=== PATIENT | male | born 1960 | race Caucasian/White ===

== ENCOUNTER 2022-11-06 08:51 | Outpatient (RCR) | payer BC, SELFPAY ==
--- NOTE | 2022-11-01 09:00 | CRLHL7_ITS ---
For Patients: As a result of the Century Cures Act, medical imaging exams and procedure reports are released immediately into your electronic medical record. You may view this report before your referring provider. If you have questions, please contact your health care provider. [facility] ??? [facility] MYOCARDIAL PERFUSION SCAN CLINICAL HISTORY: 62-year-old male. Dyspnea and shortness of breath on exertion. Hypercholesteremia. Chest tightness with exertion. Father had CABG surgery at age 74. 5 feet 9 inches, 280 pounds. TECHNIQUE: (Resting SPECT and Stress Gated SPECT with wall motion and ejection fraction) Stress: Pharmacologic - Lexiscan (0.4 mg) (IV) Dose (Stress/Rest): 41.6 mCi / 39.4 mCi Tc-99m Sestamibi Comparison: None FINDINGS: There is good uptake of activity by the left ventricle. No left ventricular enlargement is noted. There is soft tissue attenuation. There is also a mid septal hotspot. This causes a normalization artifact in the other myocardial segments. Accounting for these, there is no convincing evidence for significant myocardial ischemia or infarction. The gated images demonstrate a normal left ventricular ejection fraction of 53 percent. No regional wall motion abnormalities are identified. IMPRESSION: 1) There is no evidence of significant myocardial ischemia or infarction. 2) Normal left ventricular ejection fraction of 53 percent. SIDRA MOCTEZUMA M.D. Transcribed: 12:18 p.m. [email or web address] jj/Dictated by: Sidra Moctezuma MD @ 11/06/2022 10:53:00 AM (Electronically Signed)
[2022-11-06] MEDS: REGADENOSON 0.4 MG/5 ML SYRINGE IVP (09:30)
[2022-11-06] MEDS: SODIUM CHLORIDE 0.9 % (FLUSH) 10 ML SYRINGE IVF (09:30)
[2022-11-06 10:07] VITALS: BP 159/99; PULSE 77
--- NOTE | 2022-11-06 15:59 | W.PM.STED ---
Stress Test Note Date Date Seen: 11/06/22 Date of test: 11/06/22 Providers Primary care provider: Jay Dove Stress test physician: Tabatha Boateng Stress Test Note Stress test ordered: Lexiscnoah Indication for test: Dyspnea Stress test medicine: Lexiscan Results discussion: Resting EKG: Sinus rhythm, 80 beats per minute. Resting blood pressure: 145/94 Stress test: Patient had Lexiscan done nonwalking. [place] chest heaviness or pressure with the regadenoson infusion which abated. Patient had a maximal blood pressure 171/112. No arrhythmia or concerning EKG changes noted. Await nuclear medicine images to couple this for a full formal diagnostic. Impression: Negatve EKG portion this Lexiscan. Follow up suggested: Patient will await a call back from his ordering provider once the nuclear medicine images have been read. He is discharged from here in stable condition.
== END 2022-11-15 23:59 | disposition home or self-care (01) ==
LOC: STRESS 08:51
PROVIDERS: PCP Family Medicine; Visit Provider Family Medicine
DX: R06.09 Other forms of dyspnea (principal); R60.0 Localized edema
CPT/HCPCS: 78452; 93016; 93017; A9500; J2785

== ENCOUNTER 2022-11-12 09:30 | Outpatient (CLI) | payer BC, SELFPAY | END 2022-11-12 09:31 | disposition home or self-care (01) | LOC: NFLDREF 11-13 09:28 | PROVIDERS: PCP Family Medicine; Referring Provider Family Medicine; Visit Provider Family Medicine | DX: I10 Essential (primary) hypertension (principal); R79.89 Other specified abnormal findings of blood chemistry | CPT/HCPCS: 80048; 80076 ==

== ENCOUNTER 2022-11-16 07:58 | Outpatient (CLI) | payer BC, SELFPAY ==
--- NOTE | 2022-11-16 08:15 | CRLHL7_ITS ---
For Patients: As a result of the Century Cures Act, medical imaging exams and procedure reports are released immediately into your electronic medical record. You may view this report before your referring provider. If you have questions, please contact your health care provider. INDICATION: Liver TECHNIQUE: Ultrasound abdomen limited. Sonographic images of the right upper quadrant were obtained using grande-scale and color Doppler images. COMPARISON: None FINDINGS: Liver: Normal in size with fatty infiltration. No masses. No intrahepatic biliary dilatation. Gallbladder: No stones or sludge. Normal wall thickness. No pericholecystic fluid. Common bile duct: 4 mm. Pancreas: Normal. Right kidney: 12.8 cm. Normal echotexture and cortex. 1.2 cm nonobstructing right renal calculi. No hydronephrosis. Vasculature: Proximal abdominal aorta and IVC are normal. IMPRESSION: Infiltration of the liver. 1.2 centimeter nonobstructing right renal calculi. No hydronephrosis. Dictated by Jarett Jansen MD @ 11/16/2022 4:17:50 PM (Electronically Signed)
== END 2022-11-16 07:59 | disposition home or self-care (01) ==
LOC: US 07:59
PROVIDERS: PCP Family Medicine; Visit Provider Family Medicine
DX: R79.89 Other specified abnormal findings of blood chemistry (principal); N20.0 Calculus of kidney
CPT/HCPCS: 76705

== ENCOUNTER 2022-12-28 13:15 | Outpatient (CLI) | payer BC, SELFPAY | END 2022-12-28 13:16 | disposition home or self-care (01) | PROVIDERS: PCP Family Medicine; Visit Provider Family Medicine | DX: Z00.00 Encounter for general adult medical examination without abnormal findings (principal); E78.00 Pure hypercholesterolemia, unspecified; R79.89 Other specified abnormal findings of blood chemistry; R73.03 Prediabetes; E66.9 Obesity, unspecified | CPT/HCPCS: 80053; 80061 ==

== ENCOUNTER 2023-07-20 13:33 | Emergency (ER) | payer BC, SELFPAY ==
[2023-07-20 13:39] VITALS: BP 144/107; PULSE 84; RESP 16; O2SAT 95; BMI 40.5
--- NOTE | 2023-07-20 14:03 | ED_ITS ---
HPI - General Adult General Chief complaint: Laceration/Wound Stated complaint: R pinky finger injury Time Seen by Provider: 07/20/23 13:43 History of Present Illness HPI narrative: Cutting trees, using a bar to pry tree, fell down and finger got stuck between bar and tree. Occurred approx 1 hour ago (1230) 62-year-old man presenting to the emergency department after sustaining an injury to his right pinky finger. Was cutting down trees in using a pry bar. There was a slip and finger was crushed. This was through a glove. Is having pain but he appears to be tolerating this well. There is underlying history of diabetes. No other significant injuries were sustained Related Data Previous Rx's Medication Instructions Recorded semaglutide 0.25 mg or 0.5 mg (2 0.5 mg (0.736 mL) subcut QWEEK #6 12/28/22 mg/3 mL) subcutaneous pen injector mL (Ozempic) semaglutide 0.25 mg or 0.5 mg (2 0.25 mg (0.368 mL) subcut QWEEK #3 03/14/23 mg/3 mL) subcutaneous pen injector mL (Ozempic) semaglutide 1 mg/dose (4 mg/3 mL) 1 mg (0.75 mL) subcut QWEEK #3 mL 07/10/23 subcutaneous pen injector (Ozempic) Allergies Allergy/AdvReac Type Severity Reaction Status Date / Time ragweed pollen Allergy Mild Congested Verified 12/28/22 13:00 Review of Systems Status of ROS: Reports: 6 or more systems reviewed and unremarkable except as noted in History and below PFSH PFS Surgical History History of tonsillectomy and adenoidectomy (07/31/10) ?Z90.89 - Acquired absence of other organs (ICD-10) Social History Smoking Status: Never smoker Second hand tobacco smoke exposure: No How often do you have a drink containing alcohol: never How often do you have six or more drinks on one occasion: Never AUDIT-C Alcohol total score: 0 Non-prescribed substance use: denies use Little interest or pleasure in doing things: not at all Feeling down, depressed, or hopeless: not at all Exam Narrative: Exam Narrative: Pleasant. NAD. Favoring of course his right hand. Blood pressure is up a little bit. Removing wrap, examination of the right hand does show lightly bleeding extensive injury to the right 5th finger. There is traumatized tissue running nearly the entire length of the volar surface. Split/burst open essentially on the volar surface. At least 5 cm of laceration. There is partial amputation of the distal phalanx with medial deviation approximately in the middle of this phalanx. Cuts through the base of the nail. Const: Vital Signs, click to edit/add: Vital Signs - 24 hr 07/20/23 13:39 Pulse Rate [Left P ulse Oximeter] 84 Respiratory Rate 16 Blood Pressure [Le ft Upper Arm] 144/107 H Pulse Oximetry 95 Oxygen Delivery Me thod Room Air Documenting provider has reviewed patient's vital signs: yes Course Vital Signs Vital signs: Initial Vital Signs Pulse Rate 84 07/20/23 13:39 Respiratory Rate 16 07/20/23 13:39 Blood Pressure 144/107 H 07/20/23 13:39 Blood Pressure Mean 119 H 07/20/23 13:39 Blood Pressure Position Sitting 07/20/23 13:39 Pulse Oximetry 95 07/20/23 13:39 Oxygen Delivery Method Room Air 07/20/23 13:39 Vital Signs Pulse Rate 84 07/20/23 13:39 Respiratory Rate 16 07/20/23 13:39 Blood Pressure 144/107 H 07/20/23 13:39 Pulse Oximetry 95 07/20/23 13:39 Oxygen Delivery Method Room Air 07/20/23 13:39 Pulse Rate 84 07/20/23 13:39 Respiratory Rate 16 07/20/23 13:39 Blood Pressure 144/107 H 07/20/23 13:39 Pulse Oximetry 95 07/20/23 13:39 Oxygen Delivery Method Room Air 07/20/23 13:39 Medications Administered Medications: Discontinued Medications Generic Name Dose Route Start Last Admin Trade Name Freq PRN Reason Stop Dose Admin Bupivacaine HCl 5 ml 07/20/23 14:12 07/20/23 15:11 Bupivacaine 0.25% 30 Ml INJECTION 07/20/23 14:13 5 ml ONCE ONE Administration Medical Decision Making MDM Narrative Medical decision making narrative: I would presume fracture of the distal finger here. Open fracture essentially. Placed bupivacaine for anesthesia. Sending for x-ray. Confirms fracture complete of the distal 3rd of the 5th distal phalanx on my read. Spot of debris? noted Return to spend some time irrigating this finger. Will be repairing this fracture laceration and anticipate prophylactic antibiotics. Closed with combination of 4 and 5 0 Ethilon and interrupted and simple sutures. Did support the distal finger with suturing through the nail as well. Much improved alignment. Antibiotic ointment, gauze wrap and finger Stax splint applied. The essentially burst laceration remains partially open due to tension this wound. Will have to heal somewhat with secondary intention. See further discussion patient discharge plan Medical Records Medical records reviewed: Yes I reviewed the patient's medical records Discharge Plan Discharge Clinical Impression: Fracture, finger, distal phalanx, open, Crush injury to finger, Finger laceration Patient Disposition: Home, Self-Care Additional Instructions: Elevate for comfort. Yes, arm sling might be helpful here. For the short-term and with a little food maybe, can take up to 800 mg of ibuprofen or alternatively up to 500 mg naproxen 2 times daily. Either can be combined with up to 1000 mg of acetaminophen per dose. Watch for spreading redness after 2 days accompanied by heat, swelling, marked increase in pain, purulent drainage. I would follow-up in about 3 weeks for re-evaluation. sutures out in 10 days. antibiotic ointment for 6 days and then to a dry dressing. ok to get wet but try not to soak while sutures are in. Transition to appropriately sized finger stack splint once stepdown size can be placed. Can transition to Band-Aid alone and with antibiotic ointment as soon as tomorrow I would anticipate wearing the splint for maybe as long as 6 weeks. Remember to most of the time, nixon tape the little finger to the 4th finger, especially while wearing the splint. Prescribing oral antibiotic, cephalexin, from [facility] as prophylaxis for a few days. Take the cephalexin for 6 days. Prescriptions: No Action Ozempic 0.25 mg or 0.5 mg (2 mg/3 mL) pen injector 0.5 mg subcut QWEEK Qty: 6 1RF Ozempic 0.25 mg or 0.5 mg (2 mg/3 mL) pen injector 0.25 mg subcut QWEEK Qty: 3 0RF Rx Instructions: for 4 weeks; then increase to 0.5 mg every week Ozempic 1 mg/dose (4 mg/3 mL) pen injector 1 mg subcut QWEEK Qty: 3 0RF Follow Up/Referrals: Jay Dove MD [Primary Care Provider] - Stand Alone Forms: [employer] Info Instructions
--- NOTE | 2023-07-20 14:12 | XR_ITS ---
Final Report Patient: PK GREGORY Facility:?[facility] Patient ID:?[id number] Site Patient ID:?[id number] Site :?[id number] Study:?XRay Extremity Right 5TH FINGER 3 VIEWS-07/20/2023 2:28:01 PM Ordering Physician:MELANI Final Report: Indication: Distal crush injury Comparison: None available. Technique: AP, lateral, and oblique views right 5th digit were obtained. Findings: There is traumatic amputation of the distal 5th phalanx with open soft tissue wound. Degenerative changes of the interphalangeal joints are appreciated. Marked soft tissue swelling and laceration of the distal 5th digit. Impression: Traumatic amputation of the distal 5th digit tuft with open wound and soft tissue debris. Dictated by Jeison Castro MD @ 07/20/2023 2:43:18 PM (Electronic Signature)
[2023-07-20] MEDS: BUPIVACAINE 0.25% 30 ML 5 ML INJECTION (15:11)
== END 2023-07-20 16:00 | disposition home or self-care (01) ==
PROVIDERS: Emergency Provider Family Medicine; PCP Family Medicine
DX: S62.666B Nondisplaced fracture of distal phalanx of right little finger, initial encounter for open fracture (principal); S61.316A Laceration without foreign body of right little finger with damage to nail, initial encounter; W23.0XXA Caught, crushed, jammed, or pinched between moving objects, initial encounter
CPT/HCPCS: 12001; 73140; 99284; J0665

== ENCOUNTER 2023-08-01 13:51 | Outpatient (CLI) | payer BC, SELFPAY | END 2023-08-01 13:52 | disposition home or self-care (01) | PROVIDERS: PCP Family Medicine; Visit Provider Family Medicine | DX: E11.9 Type 2 diabetes mellitus without complications (principal); E78.00 Pure hypercholesterolemia, unspecified; R79.89 Other specified abnormal findings of blood chemistry | CPT/HCPCS: 80053; 80061; 82043; 82570 ==

== ENCOUNTER 2023-12-04 08:58 | Outpatient (CLI) | payer BC, SELFPAY | END 2023-12-04 08:59 | disposition home or self-care (01) | LOC: NFLDREF 12-06 05:06 | PROVIDERS: PCP Family Medicine; Referring Provider Family Medicine; Visit Provider Family Medicine | DX: R79.89 Other specified abnormal findings of blood chemistry (principal); E78.00 Pure hypercholesterolemia, unspecified | CPT/HCPCS: 80061; 80076 ==

== ENCOUNTER 2024-01-06 08:41 | Emergency (ER) | payer BC, SELFPAY ==
[2024-01-06 08:44] VITALS: BP 167/93; PULSE 69; RESP 18; TEMP 35.7; O2SAT 95; BMI 39.7
--- NOTE | 2024-01-06 09:16 | CRLHL7_ITS ---
For Patients: As a result of the Century Cures Act, medical imaging exams and procedure reports are released immediately into your electronic medical record. You may view this report before your referring provider. If you have questions, please contact your health care provider. INDICATION: Left lower quadrant abdominal pain and left lower back pain. COMPARISON: None. TECHNIQUE: CT of the abdomen and pelvis with intravenous contrast. Multiplanar axial, coronal, and sagittal reformats were reconstructed. Contrast: 132 mL Isovue 370. FINDINGS: Lung bases: Mild basilar atelectasis. Liver: [id number] diffuse hepatic steatosis. Liver is not enlarged or cirrhotic. No discrete lesions. Patent hepatic vasculature. Gallbladder and bile ducts: Normal gallbladder. No bile duct dilation. Pancreas: Normal. Spleen: Normal. Adrenal glands: Normal. Kidneys: Normal renal size and position. Mildly asymmetric diminished left renal enhancement. Right lower pole simple cyst. No solid renal mass. 7 millimeter calculus in the right lower pole. Other punctate mid and upper right collecting system calculi. No right-sided urinary tract dilatation. There is a 7 millimeter obstructing calculus in the left proximal ureter. There are other 2-5 millimeter calculi in the left intrarenal collecting system. There is left pelvocaliectasis and proximal ureterectasis. No distal left ureteral calculi or ureterectasis. Urinary bladder: Almost completely empty at the time of the scan. Pelvis: No cyst or mass. Vessels: Few scattered atherosclerotic plaques. No aortic aneurysm. Patent mesenteric vessels. Patent renal veins. Bowel: Small hiatal hernia, sliding type. No dilated or inflamed bowel. Normal appendix. Large right-sided stool burden. Lymph nodes: No adenopathy. Peritoneum: No ascites. Abdominal wall: Diastasis of the anterior abdominal wall with a small fat containing umbilical hernia. No bowel containing hernia. Bones: No fractures. No focal worrisome bone lesions. IMPRESSION: 1. There is a 7 millimeter obstructing calculus in the left proximal ureter. 2. Other bilateral nonobstructing upper urinary tract calculi. 3. [id number] diffuse hepatic steatosis. Please note that all CT scans at this facility use dose modulation, iterative reconstruction, and/or weight-based dosing when appropriate to reduce radiation dose to as low as reasonably achievable. Dictated by Macarena Jones MD @ 01/06/2024 10:42:33 AM (Electronically Signed)
[2024-01-06] MEDS: KETOROLAC 15 MG/ML inj IVP (09:25)
[2024-01-06] MEDS: LACTATED RINGERS 1000 ML 1,000 ML IV (09:35)
[2024-01-06 09:41] LABS: Bilirubin Urine Negative (Negative); Blood Urine 3+ (Negative); Color Urine Dark yellow (Yellow); Glucose Urine Negative (Negative); Ketones Urine Negative (Negative); Leukocyte Esterase Urine Negative (Negative); Nitrite Urine Negative (Negative); Protein Urine Negative (Negative); Urobilinogen Urine 0.2 (0.2-1.0)
[2024-01-06 09:45] LABS: Basophils Percent Auto 0.2 % (0.0-3.0); Eosinophils Percent Auto 0.8 % (0.0-7.0); Hematocrit 46.6 % (37.0-53.0); Hemoglobin* 15.4 gm/dL (13.5-17.5); Immature Granulocytes Pct Auto 0.2 %; Lymphocytes Percent Auto 10.4 % (20-44); Mean Corpuscular HGB Conc 33 gm/dL (32-36); Mean Corpuscular Hemoglobin 31 pg (26-34); Mean Corpuscular Volume 93 fL (80-100); Monocytes Percent Auto 7.1 % (0.0-11.0); Neutrophils Percent Auto 81.3 % (42.0-72.0); Platelet Count* 201 K/uL (140-440); RDW Coefficient of Variation % 12.3 % (11.5-15.5); Red Blood Count 5.01 m/uL (4.30-5.90); White Blood Count* 13.22 K/uL (4.50-11.00)
[2024-01-06 09:54] LABS: Appearance Urine Cloudy (Clear); RBC Urine 25-50 (0-2); Squamous Epithelial Cell Urine Few (None-Few)
[2024-01-06 10:05] LABS: Albumin* 4.9 g/dL (3.3-5.0); Chloride* 105 mmol/L (96-114)
[2024-01-06 10:06] LABS: Potassium* 4.5 mmol/L (3.6-5.1); Sodium* 143 mmol/L (135-149)
[2024-01-06 10:08] LABS: Anion Gap 11 mEq/L (7-15); Aspartate Amino Transferase* 70 U/L (12-35); Bilirubin Total* 0.6 mg/dL (0.1-1.5); Carbon Dioxide* 27 mmol/L (20-32); Est. Creatinine Clearance* 73.65; Estimated Glomerular Filt Rate 84 ml/min; Total Protein* 8.3 g/dL (6.0-8.3)
[2024-01-06 10:09] LABS: Alanine Aminotransferase* 80 U/L (4-50); Alkaline Phosphatase* 63 U/L (40-150); Blood Urea Nitrogen* 20 mg/dL (7-30); Calcium* 9.7 mg/dL (8.4-10.6); Glucose* 140 mg/dL (60-115)
[2024-01-06 10:10] LABS: Slide Review Reflex No
--- NOTE | 2024-01-06 11:06 | ED.ABDPAIN ---
HPI - Abdominal Pain General Date Seen: 01/06/24 Chief Complaint: Abdominal Pain Stated Complaint: Abdominal pain Time Seen by Provider: 01/06/24 09:03 Source: patient Mode of arrival: ambulatory Limitations: no limitations History of Present Illness HPI narrative: Patient is a 63-year-old male presenting to emergency department for left lower quadrant/left low back pain. He says the pain started 4 days ago and has been on off since then. He states the size dull pain and eventually become sharp in nature. Pain initially started as left lower quadrant but has since started radiating to his left back. Denies any other abdominal pain. Denies fevers, chills, chest pain, shortness of breath, diarrhea, constipation. Has been taking Tylenol for pain which has helped. He had some nausea and vomiting on that resolved. Has not had any further vomiting or nausea. Does states he had an ultrasound done a few months ago but is unsure what it was for. At that time he was told he had a kidney stone but it was not causing any problems. No previous abdominal surgeries. Has has had decreased p.o. intake due to not having much of an appetite. Has had normal bowel movements. Denies dysuria. Related Data Previous Rx's ?Medication ?Instructions ?Recorded rosuvastatin 10 mg tablet 10 mg PO DAILY #90 tabs 12/05/23 semaglutide 1 mg/dose (4 mg/3 mL) 1 mg (0.75 mL) subcut QWEEK #3 mL 12/05/23 subcutaneous pen injector (Ozempic) ketorolac 10 mg tablet 10 mg PO Q6H PRN pain #20 tabs 01/06/24 oxycodone 5 mg tablet 5 mg PO Q6H PRN pain #12 tabs 01/06/24 tamsulosin 0.4 mg capsule (Flomax) 0.4 mg PO DAILY #7 caps 01/06/24 Allergies Allergy/AdvReac Type Severity Reaction Status Date / Time ragweed pollen Allergy Mild Congested Verified 08/01/23 13:33 Review of Systems Status of ROS Reports: 10 or more systems reviewed and unremarkable except as noted in History and below PFSH PFSH Surgical History History of tonsillectomy and adenoidectomy (07/31/10) ?Z90.89 - Acquired absence of other organs (ICD-10) Social History Smoking Status: Never smoker Second hand tobacco smoke exposure: No How often do you have a drink containing alcohol: never How often do you have six or more drinks on one occasion: Never AUDIT-C Alcohol total score: 0 Non-prescribed substance use: denies use Little interest or pleasure in doing things: not at all Feeling down, depressed, or hopeless: not at all Exam Narrative: Exam Narrative: Const: Well-nourished, Well-developed, in mild distress Eyes: PERRL, no conjunctival injection, and symmetrical lids HENT: Atraumatic external nose and ears. Moist mucous membranes. Neck: Symmetric, trachea midline, No thyromegaly. CVS: RRR, No murmurs or gallops. Peripheral pulses 2+ and equal in all extremities RESP: Unlabored respiratory effort. Clear to auscultation bilaterally. GI: Minor tenderness to palpation left lower quadrant, Nondistended, No rebound or guarding. MSK:Extremities w/o deformity, Normal Active ROM Skin: Warm, Dry. No rashes or lesions. Neuro: Normal Muscle tone, No focal neurological deficits. Psych: Awake, Alert, & Oriented x3. Appropriate mood and affect. Const: Vital Signs, click to edit/add: Vital Signs - 24 hr 01/06/24 08:44 Temperature 96.3 F L Pulse Rate [Pulse Oximeter] 69 Respiratory Rate 18 Blood Pressure [Ri ght Upper Arm] 167/93 H Pulse Oximetry 95 Oxygen Delivery Me thod Room Air Course Vital Signs Vital signs: Initial Vital Signs Temperature 96.3 F L 01/06/24 08:44 Temperature Source Temporal Artery Scan 01/06/24 08:44 Pulse Rate 69 01/06/24 08:44 Respiratory Rate 18 01/06/24 08:44 Blood Pressure 167/93 H 01/06/24 08:44 Blood Pressure Mean 117 H 01/06/24 08:44 Pulse Oximetry 95 01/06/24 08:44 Oxygen Delivery Method Room Air 01/06/24 08:44 Vital Signs Temperature 96.3 F L 01/06/24 08:44 Pulse Rate 69 01/06/24 08:44 Respiratory Rate 18 01/06/24 08:44 Blood Pressure 167/93 H 01/06/24 08:44 Pulse Oximetry 95 01/06/24 08:44 Oxygen Delivery Method Room Air 01/06/24 08:44 Temperature 96.3 F L 01/06/24 08:44 Pulse Rate 69 01/06/24 08:44 Respiratory Rate 18 01/06/24 08:44 Blood Pressure 167/93 H 01/06/24 08:44 Pulse Oximetry 95 01/06/24 08:44 Oxygen Delivery Method Room Air 01/06/24 08:44 Medications Administered Medications: Discontinued Medications Generic Name Dose Route Start Last Admin Trade Name Camilo PRN Reason Stop Dose Admin Lactated Ringer's 1,000 mls @ 1,000 mls/hr 01/06/24 09:16 01/06/24 09:35 Lactated Ringers 1000 Ml IV 01/06/24 10:15 1,000 mls/hr .Q1H ONE Administration Ketorolac Tromethamine 15 mg 01/06/24 09:16 01/06/24 09:25 Ketorolac 15 Mg/Ml Inj IVP 01/06/24 09:17 15 mg ONCE ONE Administration MDM - Abdominal Pain MDM Narrative Medical decision making narrative: Patient is a 63-year-old male presenting to emergency department for abdominal pain and low back. His description of the pain does make me concerned for nephrolithiasis. Also considering diverticulitis. No pain in the right lower quadrant appendicitis seems unlikely. No previous abdominal surgeries and has had a normal bowel movement SBO is unlikely. Considering the location of pain pancreatitis is unlikely. He is otherwise doing well at this time. Toradol given for pain and 1 L fluids also ordered. Will do a CBC, CMP, urinalysis. Urinalysis has blood in the urine but no signs of UTI. CBC has a slightly elevated white blood cell count 13.2 to but no other clear signs of infection. Does not meet SIRS criteria. CMP shows no concerning abnormalities and creatinine is within normal limits. AST and ALT are slightly elevated but actually better than they were in the past. CT scan reviewed by myself and the radiologist shows a stone within the proximal ureter causing hydronephrosis. He has no signs of infected kidney stone is otherwise doing well at this time. I believe he is safe for discharge and will be sent home with pain medication and Flomax. Information was given for [place] [facility] for follow-up. He is agreeable to this plan. Lab Data Labs: Lab Results 01/06/24 01/06/24 Range/Units 09:30 09:35 WBC 13.22 H (4.50-11.00) K/uL RBC 5.01 (4.30-5.90) m/uL Hgb 15.4 (13.5-17.5) gm/dL Hct 46.6 (37.0-53.0) % MCV 93 (80-100) fL MCH 31 (26-34) pg MCHC 33 (32-36) gm/dL RDW Coeff of Randy 12.3 (11.5-15.5) % Plt Count 201 (140-440) K/uL Neut % (Auto) 81.3 H (42.0-72.0) % Lymph % (Auto) 10.4 L (20-44) % [place] % (Auto) 7.1 (0.0-11.0) % Eos % (Auto) 0.8 (0.0-7.0) % Baso % (Auto) 0.2 (0.0-3.0) % Neut # (Auto) 10.70 H (1.7-7.0) K/uL Lymph # (Auto) 1.40 (0.90-2.90) K/uL [place] # (Auto) 0.90 (0.00-0.90) K/UL Eos # (Auto) 0.10 (0.00-0.50) K/uL Baso # (Auto) 0.00 (0.00-0.30) K/uL Abs Immat Gran (auto) 0.00 (0.00-0.30) K/uL Imm/Tot Granulo (auto) 0.2 % Sodium 143 (135-149) mmol/L Potassium 4.5 (3.6-5.1) mmol/L Chloride 105 (96-114) mmol/L Carbon Dioxide 27 (20-32) mmol/L Anion Gap 11 (7-15) mEq/L BUN 20 (7-30) mg/dL Creatinine 1.0 (0.5-1.5) mg/dL Estimated Creat Clear 73.65 Estimated GFR 84 ml/min Glucose 140 H (60-115) mg/dL Calcium 9.7 (8.4-10.6) mg/dL Total Bilirubin 0.6 (0.1-1.5) mg/dL AST 70 H (12-35) U/L ALT 80 H (4-50) U/L Alkaline Phosphatase 63 (40-150) U/L Total Protein 8.3 (6.0-8.3) g/dL Albumin 4.9 (3.3-5.0) g/dL Urine Color Dark yellow (Yellow) Urine Appearance Cloudy A (Clear) Urine pH 6.0 (5.0-8.5) Ur Specific Delta 1.020 (1.000-1.030) Urine Protein Negative (Negative) Urine Glucose (UA) Negative (Negative) Urine Ketones Negative (Negative) Urine Blood 3+ A (Negative) Urine Nitrite Negative (Negative) Urine Bilirubin Negative (Negative) Urine Urobilinogen 0.2 (0.2-1.0) Ur Leukocyte Esterase Negative (Negative) Urine RBC 25-50 A (0-2) Urine WBC 2-5 (0-5) Ur Squamous Epith Cells Few (None-Few) Urine Bacteria None (None) Imaging Data CT scan abdomen and pelvis: Attestation: I have reviewed the pertinent imaging results. Radiologist's impression: 1. There is a 7 millimeter obstructing calculus in the left proximal ureter. 2. Other bilateral nonobstructing upper urinary tract calculi. 3. Xvaq-es-qvvqzclo diffuse hepatic steatosis. Please note that all CT scans at this facility use dose modulation, iterative reconstruction, and/or weight-based dosing when appropriate to reduce radiation dose to as low as reasonably achievable. Dictated by Macarena Jones MD @ 01/06/2024 10:42:33 AM Discharge Plan Discharge Clinical Impression: Left nephrolithiasis Patient Disposition: Home, Self-Care Condition: Stable Instructions: Kidney Stones (ED) Additional Instructions: Use the Toradol 1st for pain if not has not working you can try the oxycodone. Do not use ibuprofen or other NSAIDs when your using Toradol as they are the same class of drugs. Use the Flomax daily. Follow up with [place] [facility] at [phone]. return to emergency department for new worsening symptoms. Prescriptions: New ketorolac 10 mg tablet 10 mg PO Q6H PRN (Reason: pain) Qty: 20 0RF Rx Instructions: maximum total duration of 5 days from all oral, intranasal, or parenteral formulations oxycodone 5 mg tablet 5 mg PO Q6H PRN (Reason: pain) Qty: 12 0RF tamsulosin [Flomax] 0.4 mg capsule 0.4 mg PO DAILY Qty: 7 0RF No Action rosuvastatin 10 mg tablet 10 mg PO DAILY Qty: 90 1RF Ozempic 1 mg/dose (4 mg/3 mL) pen injector 1 mg subcut QWEEK Qty: 3 2RF Follow Up/Referrals: Jay Dove MD [Primary Care Provider] - Stand Alone [facility]: [facility] Inst[facility]
== END 2024-01-06 11:30 | disposition home or self-care (01) ==
PROVIDERS: Emergency Provider Student in an Organized Health Care Education/Training Program; PCP Family Medicine
DX: N20.0 Calculus of kidney (principal)
CPT/HCPCS: 36415; 74177; 80053; 81001; 85025; 96374; 99283; 99284; J1885; J7120; Q9967

== ENCOUNTER 2024-02-12 08:36 | Outpatient (CLI) | payer BC, SELFPAY ==
--- NOTE | 2024-02-12 09:00 | CRLHL7_ITS ---
For Patients: As a result of the Century Cures Act, medical imaging exams and procedure reports are released immediately into your electronic medical record. You may view this report before your referring provider. If you have questions, please contact your health care provider. INDICATION: Follow-up left-sided stone TECHNIQUE: CT abdomen and pelvis without contrast, stone study. COMPARISON: CT abdomen pelvis 01/06/2024. FINDINGS: Lower chest: Mild coronary artery calcification. Liver: Unremarkable. Gallbladder and bile ducts: No stones or inflammation. No biliary dilatation. Pancreas: Unremarkable. Spleen: Mild splenomegaly measuring 13.8 centimeters in the craniocaudal dimension, similar to prior. Adrenal glands: Normal in size. No nodules. Kidneys: There are 3 stones in the proximal left ureter, the largest and most distal measuring 4 x 5 x 5 millimeters (, ). Mild left hydronephrosis is decreased compared to prior. Nonobstructing nephroliths throughout the kidneys. GI tract: Small hiatal hernia. No obstruction. Normal appendix. Vasculature: Mild aortoiliac atherosclerosis. Lymph nodes: No lymphadenopathy. Peritoneum/Abdominal Wall: Unremarkable. No sign of mass or infiltration. No free air or significant free fluid. Pelvis: Unremarkable. No pelvic masses. Bones: Mild degenerative disease of the spine. IMPRESSION: Multiple stones in the proximal left ureter, with the largest and most distal stone measuring 4 x 5 x 5 millimeters common similar position compared to prior. Decreased left hydronephrosis, now mild. Please note that all CT scans at this facility use dose modulation, iterative reconstruction, and/or weight-based dosing when appropriate to reduce radiation dose to as low as reasonably achievable. Dictated by Claribel Torres MD @ 02/13/2024 8:43:00 AM (Electronically Signed)
== END 2024-02-12 08:37 | disposition home or self-care (01) ==
LOC: CT 08:39
PROVIDERS: PCP Family Medicine; Visit Provider Student in an Organized Health Care Education/Training Program
DX: N20.0 Calculus of kidney (principal)
CPT/HCPCS: 74176

== ENCOUNTER 2024-03-03 08:39 | Outpatient (CLI) | payer BC, SELFPAY | END 2024-03-03 08:40 | disposition home or self-care (01) | PROVIDERS: PCP Family Medicine; Visit Provider Family Medicine | DX: E11.9 Type 2 diabetes mellitus without complications (principal); R79.89 Other specified abnormal findings of blood chemistry; E78.00 Pure hypercholesterolemia, unspecified; E66.9 Obesity, unspecified; N20.0 Calculus of kidney; Z01.818 Encounter for other preprocedural examination; Z12.5 Encounter for screening for malignant neoplasm of prostate | CPT/HCPCS: 80053; 80061; 82043; 82570; G0103 ==

== ENCOUNTER 2024-05-28 12:47 | Emergency (ER) | payer BC, SELFPAY ==
--- OUTSIDE RECORDS SUMMARY | 2024-05-28 12:49 | XMS_ITS | Clinical Summary ---
Author Organization [facility] Address [address] [place] [address]. [place] [address] Care Team Providers Care Driver/Merchandiser Name Role Phone Jay Dove MD Primary Care Provider [phone] Allergies No known active allergies Medications Semaglutide, 1 MG/DOSE, (OZEMPIC) 4 MG/3ML pen Inject 1 mg subcutaneously every 7 days. 0.75 ML SUBCU Active oxyCODONE (ROXICODONE) 5 MG tablet Take 5 mg by mouth every 6 hours as needed for severe pain. Active tamsulosin (FLOMAX) 0.4 MG capsule Take 0.4 mg by mouth daily. Active senna-docusate (SENOKOT-S/PER ICOLACE) 8.6-50 MG tabletIndicati ons:Nephrolith iasis Take 1-2 tablets by mouth 2 times daily. 30 tablet 4 Active ketorolac (TORADOL) 10 MG tabletIndicati ons:Nephrolith iasis Take 1 tablet (10 mg) by mouth every 6 hours as needed for moderate pain. 10 tablet 4 Active oxyBUTYnin ER (DITROPAN XL) 10 MG 24 hr tabletIndicati ons:Nephrolith iasis Take 1 tablet (10 mg) by mouth daily. 10 tablet 4 Active Encounters Date Type Department Care Team Description 03/19/2024 1:27 PM CDT Anesthesia Event [address] [phone] Jose Craft MD [place], [place] 03/19/2024 12:30 PM CDT - 03/19/2024 2:05 PM CDT Surgery [address] [phone] Cody Gutierrez MD CYSTOSCOPY, LEFT URETEROSCOPY, LASER LITHOTRIPSY, LEFT RETROGRADE PYELOGRAM, AND LEFT URETERAL STENT PLACEMENT 03/19/2024 10:54 AM CDT - 03/19/2024 4:12 PM CDT Hospital Encounter [facility] Phase II [address] [place] [phone] Cody Gutierrez MD Nephrolithiasis (Primary Dx) Discharge Disposition: Home or Self Care from Last 3 Months Social History Tobacco Use Types Packs/Day Years Used Date Smoking Tobacco: Never Smokeless Tobacco: Never Tobacco Cessation:Counseling Given: Not Answered Alcohol Use Standard Drinks/Week Comments Not Currently 0 (1 standard drink = 0.6 oz pur e alcohol) Interpersonal Safety Answer Date Record ed Do you feel physically and e motionally safe where you currently live? Yes 03/19/2024 Within the past 12 months, h ave you been hit, slapped, kicked or otherwise physically hurt by someone? No 03/19/2024 Within the past 12 months, h ave you been humiliated or emotionally abused in other ways by your partner or ex-partner? 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 Gender Identity Not on file Sexual Orientation Not on file Last Filed Vital Signs Vital Sign Reading Time Taken Comments Blood Pressure 151/76 03/19/2024 3:49 PM CDT Pulse 71 03/19/2024 4:00 PM CDT Temperature 36.5 C (97.7 F) 03/19/2024 3:15 PM CDT Respiratory Rate 16 03/19/2024 3:49 PM CDT Oxygen Saturation 92% 03/19/2024 4:00 PM CDT Inhaled Oxygen Concentration - - Weight 119.5 kg (263 lb 6 oz) 03/19/2024 11:24 A M CDT Height 167.6 cm (5' 6) 03/19/2024 11:24 AM CDT Body Mass Index 42.51 03/19/2024 11:24 AM CDT Plan of Treatment Health Maintenance Due Date Last Done Comments ADVANCE CARE PLANNING 1958 ANNUAL REVIEW OF HM ORDERS 1958 CT COLONOGRAPHY 1958 FIT 1958 FLEX SIG 1958 sDNA (Cologuard) 1958 HIV SCREENING 1973 HEPATITIS C SCREENING 1976 Pneumococcal Vaccine: 50+ Years (1 of 2 - PCV) 1977 RSV VACCINE (1 - Risk 60-74 years 1-dose series) 2018 PHQ-2 (once per calendar year) 2023 FALL RISK ASSESSMENT 09/27/2023 MEDICARE ANNUAL WELLNESS VISIT 09/27/2023 COVID-19 Vaccine ( season) 2024 12/20/2021, 04/21/2021, 09/02/2020, Additional history exists INFLUENZA VACCINE (#1) 2024 2, 06/03/2020, 02/28/2018, Additional history exists GLUCOSE 03/19/2027 03/19/2024, 03/03/2024 LIPID 03/03/2029 03/03/2024 COLONOSCOPY 05/19/2030 05/19/2020 COLORECTAL CANCER SCREENING 05/19/2030 DTAP/TDAP/TD IMMUNIZATION (3 - Td or Tdap) 08/15/2031 08/14/2021, 04/11/2012, 02/12/2006, Additional history exists ZOSTER IMMUNIZATION Completed 03/24/2022, 2 HPV IMMUNIZATION Aged Out No longer e ligible based on patient's age to complete this topic MENINGITIS IMMUNIZATION Aged Out No l onger eligible based on patient's age to complete this topic RSV MONOCLONAL ANTIBODY Aged Out No l onger eligible based on patient's age to complete this topic Goals Goal Patient Goal Type Associated Problems Recent Progress Patient-Stated? Author MYC ECC SURG ENROLL Care Plan MyC ECC SURG ENROLL No Renee Hurd, RN Medical Devices Implanted Type Area Glue Jointer Operator Device Identifier Shelf Expiration Date Model / Serial / Lot Stent Ureteral Percuflex Plus [id number] - [id number] Implanted:Qty : 1 on 03/19/2024 by Cody Gutierrez MD at [facility] Stent Left: Ureter [employer] [id number] 12/01/2026 [id number] / [id number] Procedures Procedure Name Priority Date/Time Associated Diagnosis Comments XR SURGERY ERNESTO FLUORO LESS THAN 5 MIN Routine 03/19/2024 2:32 PM CDT STONE ANALYSIS Routine 03/19/2024 2:04 PM CDT ANE AIRWAY ETT PERFORMABLE Routine 03/19/2024 1:41 PM CDT CYSTOURETEROSCOPY, WITH RETROGRADE PYELOGRAM, URETERAL STENT INSERTION, AND LITHOTRIPSY USING FRANCY HIGH POWER HOLMIUM LASER 03/19/2024 1:27 PM CDT Calculus of kidney Special Needs 1 hour; Position: Lithotomy; C-Arm; LaserLaser chief operator synthesis GLUCOSE BY METER Routine 03/19/2024 12:3 2 PM CDT HEMOGLOBIN A1C (EXTERNAL RESULT) Routine 03/03/2024 9:02 AM CDT POTASSIUM (EXTERNAL RESULT) Routine 03/03/2024 9:02 AM CDT CREATININE (EXTERNAL RESULT) Routine 03/03/2024 9:02 AM CDT GLUCOSE (EXTERNAL RESULT) Routine 03/03/2024 9:02 AM CDT AST (EXTERNAL RESULT) Routine 03/03/2024 9:02 AM CDT ALT (EXTERNAL RESULT) Routine 03/03/2024 9:02 AM CDT LIPID PANEL (EXTERNAL RESULT) Routine 03/03/2024 9:02 AM CDT ABSTRACT MICROALBUMIN Routine 03/03/2024 9:02 AM CDT LAB RESULT - HIM SCAN 03/03/2024 12:00 AM CDT EKG CARDIAC - HIM SCAN 03/03/2024 12:00 AM CDT from Last 3 Months Results * XR Surgery ERNESTO Fluoro L/T 5 Min (03/19/2024 2:32 PM CDT) Narrative [facility] - 03/19/2024 2:32 PM CDT This exam was marked as non-reportable because it will not be read by a radiologist or a [facility] non-radiologist provider. Cody Gutierrez MD IMG DIAGNOSTIC IMAGING ORDE RABROSA Final Result Performing Organization Address [facility]/ZIP Co de Phone Number [facility] * Stone analysis (03/19/2024 2:04 PM CDT) Stone Mass 2 mg 03/23/2024 2:25 PM WINDOW CLERK [facility] Calculi Description See Note 03/23/2024 2:25 PM WINDOW CLERK [facility] Comment: Specimen consists of one brown calculus. The total weight is 2 mg. Stone Composition See Note 2:25 PM WINDOW CLERK [facility] Comment: Calculi composed primarily of calcium oxalate monohydrate. INTERPRETIVE INFORMATION: Calculi (Stone) analysis Calculi are the products of physiological processes that yield crystalline compounds in a matrix of biological compounds and blood. Matrix components are not reported. The clinically significant crystalline components identified in calculi specimens are reported. Gross description may not be consistent with composition determined by FTIR analysis. Performed By: [facility] [address] [place] [address] Mobile Patrol Officer: Julian Holden MD, PhD CLIA Number: [id number] Calculus/Stone STRUCTURE OF LEFT URETER / Unknown Non-blood Collection / Unknown 03/19/2024 2:04 PM CDT 03/20/2024 6:37 AM CDT Cody Gutierrez MD LAB - BODY FLUIDS ORDERABLE S Final Result Performing Organization Address [facility]/ZIP Co de Phone Number [facility] [address] [place] [address], [facility] [phone] * ANE AIRWAY ETT PERFORMABLE (03/19/2024 1:41 PM CDT) Narrative Shawna Prajapati APRN [employer] APPLICATION DEVELOPER - 03/19/2024 1:41 PM CDT Shawna Prajapati APRN [employer] APPLICATION DEVELOPER 03/19/2024 1:48 PM Airway Patient location during procedure: OR Procedure Start/Stop Times: 03/19/2024 1:41 PM Staff - Anesthesiologist: Jose Craft MD [employer] APPLICATION DEVELOPER: Shawna Prajapati APRN [employer] APPLICATION DEVELOPER Performed By: anesthesiologist Consent for Airway Urgency: elective Indications and Patient Condition Indications for airway management: shirley-procedural Induction type:intravenous Mask difficulty assessment: 1 - vent by mask Final Airway Details Final airway type: endotracheal airway Successful airway: ETT - single Endotracheal Airway Details ETT size (mm): 7.5 Cuffed: yes Successful intubation technique: video laryngoscopy VL Blade Size: Glidescope 3 Grade View of Cords: 1 Adjucts: stylet Position: Right Measured from: lips Secured at (cm): 21 Bite block used: None Post intubation assessment Placement verified by: capnometry Number of attempts at approach: 1 Secured with: tape Ease of procedure: easy Dentition: Intact and Unchanged Medication(s) Administered Medication Administration Time: 03/19/2024 1:41 PM us Jose Craft MD [place] ANESTHESIA Final Resul t * (ABNORMAL) Glucose by meter (03/19/2024 12:32 PM CDT) GLUCOSE BY METER POCT 121(H) 70 - 99 mg/dL 03/19/2024 12:39 PM CDT [facility] POCT RESULTS Blood, Capillary BLOOD SPECIMEN / Unknown 03/19/2024 12:32 PM CDT 03/19/2024 12:39 PM CDT us Cody Gutierrez MD LAB - [facility] POCT Final Res ult [facility] POCT RESULTS [address] [place] [address] * Potassium (External Result) (03/03/2024 9:02 AM CDT) Potassium (External) 4.3 3.6 - 5.1 mmol/L [facility] Blood 03/03/2024 9:02 AM CDT [facility] - 03/03/2024 9:02 AM T [facility] - External Lab Results us Provider Outside LAB - HIM EXTERNAL RESULT Final Result Performing Organization Address [facility] Co de Phone Number [facility] [address] [place] [address], [facility] [phone] * (ABNORMAL) Lipid Panel (External Result) (03/03/2024 9:02 AM CDT) Cholesterol (External) 153 90 - 199 mg/dL [facility] Triglycerides (External) 158(A) 40 - 149 mg/dL [facility] HDL Cholesterol (External) 41 >=40 mg/dL [facility] LDL Cholesterol Calculated (External) 80 <100 mg/dL [facility] Blood 03/03/2024 9:02 AM CDT [facility] - 03/03/2024 9:02 AM CDT [facility] - External Lab Results us Provider Outside LAB - HIM EXTERNAL RESULT Final Result Performing Organization Address [facility] Co de Phone Number [facility] [address] [place] [address], [facility] [phone] * (ABNORMAL) Hemoglobin A1c (External Result) (03/03/2024 9:02 AM CDT) Hemoglobin A1C (External) 5.8(A) 0 - 5.6 % [facility] Blood 03/03/2024 9:02 AM CDT [facility] - 03/03/2024 9:02 AM CDT [facility] - External Lab Results us Provider Outside LAB - HIM EXTERNAL RESULT Final Result Performing Organization Address City/[facility]/ZIP Co de Phone Number [facility] [address] [place] [address], [facility] [phone] * (ABNORMAL) Glucose (External Result) (03/03/2024 9:02 AM CDT) Glucose (External) 111 60 - 115 mg/dL [facility] Blood 03/03/2024 9:02 AM CDT [facility] - 03/03/2024 9:02 AM CDT [facility] - External Lab Results us Provider Outside LAB - HIM EXTERNAL RESULT Final Result Performing Organization Address [facility]/ZIP Co de Phone Number [facility] [address] [place], [place] [phone] [place] [address] * Creatinine (External Result) (03/03/2024 9:02 AM CDT) Creatinine (External) 0.9 0.5 - 1.5 mg/dL [facility] Blood 03/03/2024 9:02 AM T [facility] - 03/03/2024 9:02 AM CDT [facility] - External Lab Results us Provider Outside LAB - [facility] EXTERNAL RESULT Final Result Performing Organization Address [facility] Co de Phone Number [facility] [address] [place], [place] [address] [phone] * (ABNORMAL) AST (External Result) (03/03/2024 9:02 AM CDT) AST (External) 85(A) 12 - 35 U/L [facility] Blood 03/03/2024 9:02 AM CDT [facility] - 03/03/2024 9:02 AM CDT [facility] - External Lab Results us Provider Outside LAB - [facility] EXTERNAL RESULT Final Result Performing Organization Address City/[facility]/ZIP Co de Phone Number [facility] [address] [place] [address], [facility] [phone] * (ABNORMAL) ALT (External Result) (03/03/2024 9:02 AM CDT) ALT (External) 77(A) 4 - 50 U/L [facility] Blood 03/03/2024 9:02 AM CDT [facility] - 03/03/2024 9:02 AM CDT [facility] - External Lab Results us Provider Outside LAB - HIM EXTERNAL RESULT Final Result Performing Organization Address [facility]/ZIP Co de Phone Number [facility] [address] [place], [place] [phone] [place] [address] * Abstract Microalbumin (03/03/2024 9:02 AM CDT) Albumin (Urine) MG/SPEC 6 Not Established mg/dL [facility] Creatinine (Urine) 208.1 Not Established mg/dL [facility] Albumin/Creati nine Ratio 20 0 - 30 [facility] 03/03/2024 9:02 AM CDT [facility] - 03/03/2024 9:02 AM CDT [facility] - External Lab Results Creatinine and Albumin reference range are not established; See Scan Document us Provider Outside LAB - HIM EXTERNAL RESULT Final Result Performing Organization Address City/[facility]/ZIP Co de Phone Number [facility] [address] [place] [address], [facility] [phone] * Lab Result - HIM Scan (03/03/2024 12:00 AM CDT) 03/03/2024 us Provider Outside [facility] NON-BEAKER LAB TESTING Final Result * EKG Cardiac - HIM Scan (03/03/2024 12:00 AM CDT) 03/03/2024 us Provider Outside ECG ORDERABLES Final Result from Last 3 Months Additional Health Concerns Active Problems Noted Date Diagnosed Date MyC ECC SURG ENROLL 03/12/2024 [place] [address] Care Teams Driver/Merchandiser Relationship Specialty Start Date End Date Jay Doev MD PCP - General Family Medicine 03/09/24
--- OUTSIDE RECORDS SUMMARY | 2024-05-28 12:49 | XMS_ITS | Referral Summary ---
Author Organization [facility] Address [facility] [address] Care Team Providers Care Dancing Teacher Name Role Phone Jay Dove MD Primary Care Provider [phone] Encounters Date Type Department Care Team Description 03/19/2024 1:27 PM CDT Anesthesia Event [address] [id number] Jose Craft MD [place], [facility] 03/19/2024 12:30 PM CDT - 03/19/2024 2:05 PM CDT Surgery [address] [address] Cody Gutierrez MD CYSTOSCOPY, LEFT URETEROSCOPY, LASER LITHOTRIPSY, LEFT RETROGRADE PYELOGRAM, AND LEFT URETERAL STENT PLACEMENT 03/19/2024 10:54 AM CDT - 03/19/2024 4:12 PM CDT Hospital Encounter [facility] Phase II [address] [place] [id number] Cody Gutierrez MD Nephrolithiasis (Primary Dx) Discharge Disposition: Home or Self Care from Last 3 Months Allergies No known active allergies Medications Semaglutide, [...] by mouth daily. 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 Author MYC ECC SURG ENROLL Care Plan MyC ECC SURG ENROLL No Renee Hurd RN Medical Devices Implanted Type Area Senior Housekeeper Device Identifier Shelf Expiration Date Model / Serial / Lot Stent Ureteral Percuflex Plus [id number] - [id number] Implanted:Qty : 1 on 03/19/2024 by Cody Gutierrez MD at [facility] Stent Left: Ureter [employer] [place] [id number] 12/01/2026 [id number] / / [id number] Procedures Procedure Name Priority Date/Time Associated Diagnosis [...] Needs 1 hour; Position: Lithotomy; C-Arm; LaserLaser basket machine operator GLUCOSE BY METER Routine 03/19/2024 12:3 2 [...] be read by a radiologist or a [facility] non-radiologist provider. Cody Gutierrez MD [facility] Final Result RADISKYE * Stone analysis (03/19/2024 2:04 PM CDT) Stone Mass 2 mg 03/23/2024 2:25 PM WEB MASTER [place] Calculi Description See Note 03/23/2024 2:25 PM WEB MASTER [place] Comment: Specimen consists of one brown calculus. The total weight is 2 mg. Stone Composition See Note 2:25 PM WEB MASTER [place] Comment: Calculi composed primarily of calcium oxalate monohydrate. INTERPRETIVE INFORMATION: Calculi (Stone) analysis Calculi are the products of physiological processes that yield crystalline compounds in a matrix of biological compounds and blood. Matrix components are not reported. The clinically significant crystalline components identified in calculi specimens are reported. Gross description may not be consistent with composition determined by FTIR analysis. Performed By: [email or web address] [address] [place] [id number] Resource Development Director: Julian Holden MD, PhD CLIA Number: [id number] Calculus/Stone STRUCTURE OF LEFT URETER / Unknown Non-blood Collection / Unknown 03/19/2024 2:04 PM CDT 03/20/2024 6:37 AM CDT us Cody Gutierrez MD LAB - BODY FLUIDS ORDERABLE S Final Result [facility] [address] [place] [address], [facility] [phone] * ANE AIRWAY ETT PERFORMABLE (03/19/2024 1:41 PM CDT) Narrative Shawna Prajapati APRN TILE DESIGNER - 03/19/2024 1:41 PM CDT Shawna Prajapati APRN TILE DESIGNER 03/19/2024 1:48 PM Airway Patient location during procedure: OR Procedure Start/Stop Times: 03/19/2024 1:41 PM Staff - Anesthesiologist: Jose Craft MD TILE DESIGNER: Shawna Prajapati APRN TILE DESIGNER Performed By: anesthesiologist Consent for Airway Urgency: [...] 03/19/2024 1:41 PM us Jose Craft MD OR ANESTHESIA Final Resul t * (ABNORMAL) Glucose by meter (03/19/2024 12:32 PM CDT) GLUCOSE BY METER POCT 121(H) 70 - 99 mg/dL 03/19/2024 12:39 PM CDT [facility] Blood, Capillary BLOOD SPECIMEN / Unknown 03/19/2024 12:32 PM CDT 03/19/2024 12:39 PM CDT us Cody Gutierrez MD LAB - BEAKER POCT Final Res ult Performing Organization Address City/[facility]/ZIP Co de Phone Number [facility] POCT RESULTS [address] [place] [address] * Potassium (External Result) (03/03/2024 9:02 AM CDT) Potassium (External) 4.3 3.6 - 5.1 mmol/L [facility] Blood 03/03/2024 9:02 AM CDT [facility] - 03/03/2024 9:02 AM CDT [facility] - External Lab Results us Provider Outside LAB - HIM EXTERNAL RESULT Final Result Performing Organization Address [facility] Co de Phone Number [facility] [address] [place] [address], [facility] [phone] * (ABNORMAL) Lipid Panel (External Result) (03/03/2024 9:02 AM CDT) Cholesterol (External) 153 90 - 199 mg/dL [facility] Triglycerides (External) 158(A) 40 - 149 mg/dL [facility] HDL Cholesterol (External) 41 >=40 mg/dL [facility] LDL Cholesterol Calculated (External) 80 <100 mg/dL [facility] Blood 03/03/2024 9:02 AM CDT [facility] - 03/03/2024 9:02 AM CDT [facility] - External Lab Results us Provider Outside LAB - HIM EXTERNAL RESULT Final Result Performing Organization Address [facility]/ZIP Co de Phone Number [facility] [address] [place] [address], [facility] [phone] * (ABNORMAL) Hemoglobin A1c (External Result) (03/03/2024 9:02 AM CDT) Hemoglobin A1C (External) 5.8(A) 0 - 5.6 % [facility] Blood 03/03/2024 9:02 AM CDT [facility] 03/03/2024 9:02 AM CDT [facility] - External Lab Results us Provider Outside LAB - HIM EXTERNAL RESULT Final Result Performing Organization Address [facility] Co de Phone Number [facility] [address] [place], [place] [address] [phone] * (ABNORMAL) Glucose (External Result) (03/03/2024 9:02 AM CDT) Glucose (External) 111 60 - 115 mg/dL [facility] Blood 03/03/2024 9:02 AM CDT [facility] - 03/03/2024 9:02 AM CDT [facility] - External Lab Results us Provider Outside LAB - [facility] EXTERNAL RESULT Final Result Performing Organization Address [facility] Co de Phone Number [facility] [address] [place] [address], [facility] [phone] * Creatinine (External Result) (03/03/2024 9:02 AM CDT) Creatinine (External) 0.9 0.5 - 1.5 mg/dL [facility] Blood 03/03/2024 9:02 AM CDT [facility] - 03/03/2024 9:02 AM CDT [facility] - External Lab Results us Provider Outside LAB - HIM EXTERNAL RESULT Final Result Performing Organization Address [facility] Co de Phone Number [facility] [address] [place], [place] [address] [phone] * (ABNORMAL) AST (External Result) (03/03/2024 9:02 AM CDT) AST (External) 85(A) 12 - 35 U/L [facility] Blood 03/03/2024 9:02 AM CDT [facility] - 03/03/2024 9:02 AM CDT [facility] - External Lab Results us Provider Outside LAB - HIM EXTERNAL RESULT Final Result Performing Organization Address [facility]/ZIP Co de Phone Number [facility] [address] [place] [address], [facility] [phone] * (ABNORMAL) ALT (External Result) (03/03/2024 9:02 AM CDT) ALT (External) 77(A) 4 - 50 U/L [facility] Blood 03/03/2024 9:02 AM CDT [facility] - 03/03/2024 9:02 AM CDT [facility] - External Lab Results us Provider Outside LAB - HIM EXTERNAL RESULT Final Result Performing Organization Address [facility]/ZIP Co de Phone Number [facility] [address] [place], [place] [address] [phone] * Abstract Microalbumin (03/03/2024 9:02 AM CDT) Albumin (Urine) MG/SPEC 6 Not Established mg/dL [facility] Creatinine (Urine) 208.1 Not Established mg/dL [facility] Albumin/Creati nine Ratio 20 0 - 30 [facility] 03/03/2024 9:02 AM CDT [facility] - 03/03/2024 9:02 AM CDT [facility] - External Lab Results Creatinine and Albumin reference range are not established; See Scan Document us Provider Outside LAB - HIM EXTERNAL RESULT Final Result Performing Organization Address [facility]/ZIP Co de Phone Number [facility] [address] [place], [place] [address] [phone] * Lab Result - HIM Scan (03/03/2024 12:00 AM CDT) 03/03/2024 us Provider Outside MH NON-BEAKER LAB TESTING Final Result * EKG Cardiac - HIM Scan (03/03/2024 12:00 AM CDT) 03/03/2024 us Provider Outside ECG ORDERABLES Final Result from Last 3 Months Additional Health Concerns Active Problems Noted Date Diagnosed Date MyC ECC SURG ENROLL 03/12/2024 Insurance [facility] OUT OF STATE Care Teams Dancing Teacher Relationship Specialty Start Date End Date Jay Dove MD PCP - General Family Medicine 03/09/24
[2024-05-28 13:12] VITALS: BP 200/127; PULSE 80; RESP 16; TEMP 36.7; O2SAT 96; BMI 38.7
[2024-05-28 14:02] VITALS: PULSE 78; O2SAT 93
[2024-05-28 14:15] VITALS: PULSE 73; O2SAT 94
[2024-05-28 14:30] VITALS: PULSE 77; O2SAT 95
[2024-05-28 14:48] LABS: Basophils Absolute Auto 0.03 K/uL (0.00-0.30); Basophils Percent Auto 0.4 % (0.0-3.0); Eosinophils Absolute Auto 0.24 K/uL (0.00-0.50); Eosinophils Percent Auto 3.6 % (0.0-7.0); Hemoglobin* 14.5 gm/dL (13.5-17.5); Immature Granulocytes Abs Auto 0.05 K/uL (0.00-0.30); Immature Granulocytes Pct Auto 0.7 %; Lymphocytes Absolute Auto 1.54 K/uL (0.90-2.90); Lymphocytes Percent Auto 22.8 % (20-44); Mean Corpuscular HGB Conc 34 gm/dL (32-36); Mean Corpuscular Hemoglobin 30 pg (26-34); Mean Corpuscular Volume 90 fL (80-100); Monocytes Percent Auto 11.1 % (0.0-11.0); Neutrophils Absolute Auto 4.15 K/uL (1.7-7.0); Neutrophils Percent Auto 61.4 % (42.0-72.0); Platelet Count* 177 K/uL (140-440); RDW Coefficient of Variation % 12.3 % (11.5-15.5); White Blood Count* 6.76 K/uL (4.50-11.00)
[2024-05-28 14:56] LABS: Chloride* 105 mmol/L (96-114)
[2024-05-28 14:57] LABS: Potassium* 4.3 mmol/L (3.6-5.1); Sodium* 140 mmol/L (135-149)
[2024-05-28 14:58] LABS: Slide Review Reflex No
[2024-05-28 14:59] LABS: Creatinine* 1.4 mg/dL (0.5-1.5); Estimated Glomerular Filt Rate 56 ml/min
[2024-05-28 15:00] LABS: Anion Gap 8 mEq/L (7-15); Blood Urea Nitrogen* 25 mg/dL (7-30); Calcium* 9.6 mg/dL (8.4-10.6); Carbon Dioxide* 27 mmol/L (20-32); Glucose* 106 mg/dL (60-115)
[2024-05-28 15:01] VITALS: BP 171/102; PULSE 71; RESP 18; TEMP 36.2; O2SAT 95
--- NOTE | 2024-05-28 15:26 | ED_ITS ---
HPI - General Adult General Date Seen: 05/28/24 Chief complaint: Hypertension Stated complaint: Hypertension Time Seen by Provider: 05/28/24 13:46 Source: patient Mode of arrival: ambulatory Limitations: no limitations History of Present Illness HPI narrative: Patient is a 63-year-old male presenting to the emergency department for hypertension. States he went to his dentist yesterday and they did his blood pressure twice. The 1st reading was 251/152 and a 2nd reading was 198/101. He cannot have his teeth cleaning done and was told to follow-up outpatient. He states for the past few days he has been having a headache but otherwise asymptomatic. States he has had headaches like this before and is relatively mild. He is not currently on any blood pressure medication. He last saw his primary care provider in February. Based stay on chart review of looks like his blood pressure has been slowly creeping up. Denies fevers, chills, chest pain, shortness of breath, weakness, numbness, lightheadedness, diarrhea, constipation.. No other concerns noted. Related Data Previous Rx's ?Medication ?Instructions ?Recorded ketorolac 10 mg tablet 10 mg PO Q6H PRN pain #20 tabs 01/10/24 oxycodone 5 mg tablet 5 mg PO Q6H PRN pain #30 tabs 03/03/24 rosuvastatin 10 mg tablet 10 mg PO DAILY #90 tabs 03/03/24 semaglutide 1 mg/dose (4 mg/3 mL) 1 mg (0.75 mL) subcut QWEEK #3 mL 03/03/24 subcutaneous pen injector (Ozempic) tamsulosin 0.4 mg capsule (Flomax) 0.4 mg PO DAILY #90 caps 03/03/24 Allergies Allergy/AdvReac Type Severity Reaction Status Date / Time ragweed pollen Allergy Mild Congested Verified 05/28/24 13:12 Review of Systems Status of ROS: Reports: 10 or more systems reviewed and unremarkable except as noted in History and below [facility] Medical History Bilateral nephrolithiasis ?N20.0 - Calculus of kidney (ICD-10) Surgical History History of tonsillectomy and adenoidectomy (07/31/10) ?Z90.89 - Acquired absence of other organs (ICD-10) Social History Smoking Status: Never smoker Second hand tobacco smoke exposure: No How often do you have a drink containing alcohol: never How often do you have six or more drinks on one occasion: Never AUDIT-C Alcohol total score: 0 Non-prescribed substance use: denies use Exam Narrative: Exam Narrative: Const: Well-nourished, Well-developed, in no distress Eyes: PERRL, no conjunctival injection, and symmetrical lids HENT: Atraumatic external nose and ears. Moist mucous membranes. Neck: Symmetric, trachea midline, No thyromegaly. CVS: RRR, No murmurs or gallops. Peripheral pulses 2+ and equal in all extremities RESP: Unlabored respiratory effort. Clear to auscultation bilaterally. GI: Nontender/Nondistended, No rebound or guarding. MSK:Extremities w/o deformity, Normal Active ROM Skin: Warm, Dry. No rashes or lesions. Neuro: Normal Muscle tone, No focal neurological deficits. Psych: Awake, Alert, & Oriented x3. Appropriate mood and affect. Const: Vital Signs, click to edit/add: Vital Signs - 24 hr 05/28/24 13:12 05/28/24 14:02 05/28/24 14:15 Temperature 98.0 F Pulse Rate 78 73 Pulse Rate [Pulse Oximeter] 80 Respiratory Rate 16 Blood Pressure [Ri ght Upper Arm] 200/127 H Pulse Oximetry 96 93 94 Oxygen Delivery Me thod Room Air 05/28/24 14:30 05/28/24 15:01 Temperature 97.2 F L Pulse Rate 77 Pulse Rate [Pulse Oximeter] 71 Respiratory Rate 18 Blood Pressure [Ri ght Upper Arm] 171/102 H Pulse Oximetry 95 95 Oxygen Delivery Me thod Room Air Course Vital Signs Vital signs: Initial Vital Signs Temperature 98.0 F 05/28/24 13:12 Temperature Source Temporal Artery Scan 05/28/24 13:12 Pulse Rate 80 05/28/24 13:12 Respiratory Rate 16 05/28/24 13:12 Blood Pressure 200/127 H 05/28/24 13:12 Blood Pressure Mean 151 H 05/28/24 13:12 Blood Pressure Position Sitting 05/28/24 13:12 Pulse Oximetry 96 05/28/24 13:12 Oxygen Delivery Method Room Air 05/28/24 13:12 Vital Signs Temperature 98.0 F 05/28/24 13:12 Pulse Rate 80 05/28/24 13:12 Respiratory Rate 16 05/28/24 13:12 Blood Pressure 200/127 H 05/28/24 13:12 Pulse Oximetry 96 05/28/24 13:12 Oxygen Delivery Method Room Air 05/28/24 13:12 Temperature 97.2 F L 05/28/24 15:01 Pulse Rate 71 05/28/24 15:01 Respiratory Rate 18 05/28/24 15:01 Blood Pressure 171/102 H 05/28/24 15:01 Pulse Oximetry 95 05/28/24 15:01 Oxygen Delivery Method Room Air 05/28/24 15:01 Medical Decision Making MDM Narrative Medical decision making narrative: This is a 63-year-old male presenting for asymptomatic hypertension. Of note his 1st blood pressure here was 200/127. The diastolic number does meet criteria for hypertensive urgency so I did order basic lab work including CBC, BMP, troponin. EKG was done in triage. EKG reviewed by myself shows no concerning abnormalities. His lab work also shows no concerning abnormalities. I attempted to get hold of his primary care provider to help facilitate setting him up on blood pressure medication but was unable to get a hold of him. Do that I will discharge the patient and told him follow-up outpatient to get started on hypertensive medication. He continues to be asymptomatic in the emergency department. Lab Data Labs: Lab Results 05/28/24 05/28/24 Range/Units 14:24 14:35 WBC 6.76 (4.50-11.00) K/uL RBC 4.80 (4.30-5.90) m/uL Hgb 14.5 (13.5-17.5) gm/dL Hct 43.0 (37.0-53.0) % MCV 90 (80-100) fL MCH 30 (26-34) pg MCHC 34 (32-36) gm/dL RDW Coeff of Randy 12.3 (11.5-15.5) % Plt Count 177 (140-440) K/uL Neut % (Auto) 61.4 (42.0-72.0) % Lymph % (Auto) 22.8 (20-44) % [place] % (Auto) 11.1 H (0.0-11.0) % Eos % (Auto) 3.6 (0.0-7.0) % Baso % (Auto) 0.4 (0.0-3.0) % Neut # (Auto) 4.15 (1.7-7.0) K/uL Lymph # (Auto) 1.54 (0.90-2.90) K/uL [place] # (Auto) 0.80 (0.00-0.90) K/UL Eos # (Auto) 0.24 (0.00-0.50) K/uL Baso # (Auto) 0.03 (0.00-0.30) K/uL Abs Immat Gran (auto) 0.05 (0.00-0.30) K/uL Imm/Tot Granulo (auto) 0.7 % Sodium 140 (135-149) mmol/L Potassium 4.3 (3.6-5.1) mmol/L Chloride 105 (96-114) mmol/L Carbon Dioxide 27 (20-32) mmol/L Anion Gap 8 (7-15) mEq/L BUN 25 (7-30) mg/dL Creatinine 1.4 (0.5-1.5) mg/dL Estimated Creat Clear 52.60 Estimated GFR 56 ml/min Glucose 106 (60-115) mg/dL Calcium 9.6 (8.4-10.6) mg/dL POC Troponin I 0.00 L (0.01-0.04) ng/ml ECG Data Attestation: I personally reviewed and interpreted this ECG as follows: Prior ECG tracings: available for review Interpretation: Sinus rhythm with a rate of 66 beats per minute, normal intervals, normal axis, no ST or T-wave abnormalities. Appears similar previous EKG on file Discharge Plan Discharge Clinical Impression: Hypertension Qualifiers: Hypertension type: unspecified Qualified Code(s): I10 - Essential (primary) hypertension Patient Disposition: Home, Self-Care Condition: Stable Instructions: Hypertension (ED) Additional Instructions: I recommend calling your primary care provider as soon as possible to schedule an appointment for your high blood pressure. He will likely want to start him on blood pressure medications. Return to emergency department for new or worsening symptoms Prescriptions: No Action Ozempic 1 mg/dose (4 mg/3 mL) pen injector 1 mg subcut QWEEK Qty: 3 5RF tamsulosin [Flomax] 0.4 mg capsule 0.4 mg PO DAILY Qty: 90 3RF oxycodone 5 mg tablet 5 mg PO Q6H PRN (Reason: pain) Qty: 30 0RF rosuvastatin 10 mg tablet 10 mg PO DAILY Qty: 90 3RF ketorolac 10 mg tablet 10 mg PO Q6H PRN (Reason: pain) Qty: 20 0RF Follow Up/Referrals: Jay Dove MD [Primary Care Provider] - Stand Alone Forms[facility] Instructions
== END 2024-05-28 16:06 | disposition home or self-care (01) ==
PROVIDERS: Emergency Provider Student in an Organized Health Care Education/Training Program; PCP Family Medicine
DX: I10 Essential (primary) hypertension (principal)
CPT/HCPCS: 36415; 80048; 84484; 85025; 93005; 99283

== ENCOUNTER 2024-06-10 08:58 | Outpatient (CLI) | payer BC, SELFPAY ==
--- NOTE | 2024-06-10 09:15 | CRLHL7_ITS ---
For Patients: As a result of the Century Cures Act, medical imaging exams and procedure reports are released immediately into your electronic medical record. You may view this report before your referring provider. If you have questions, please contact your health care provider. INDICATION: Kidney stones on CT TECHNIQUE: Ultrasound renal and bladder complete. Potts-scale and color Doppler sonographic images were acquired of the kidneys and urinary bladder. COMPARISON: 02/12/[address] FINDINGS: Right kidney:Normal cortical echogenicity. No solid renal mass. Several stones in the kidney measuring up to 1.5 cm. No hydronephrosis. 13.3 cm pole to pole. Left kidney:Normal cortical echogenicity. No solid renal mass. Marked hydronephrosis and hydroureter are new. No visible stones.13.6 cm pole to pole. Bladder: Unremarkable. Left ureteral jet was not visualized. IMPRESSION: 1. New left-sided hydronephrosis and nonvisualization of the left bladder jet consistent with obstruction. 2. Right nephrolithiasis without hydronephrosis. Dictated by Lucas Barba MD @ 06/10/2024 12:58:36 PM (Electronically Signed)
== END 2024-06-10 08:59 | disposition home or self-care (01) ==
LOC: US 09:00
PROVIDERS: PCP Family Medicine; Visit Provider Urology
DX: N20.0 Calculus of kidney (principal); N13.30 Unspecified hydronephrosis
CPT/HCPCS: 76770

== ENCOUNTER 2024-07-23 13:33 | Outpatient (CLI) | payer BC, SELFPAY ==
[2024-07-23 14:03] LABS: Creatinine* 1.5 mg/dL (0.5-1.5); Estimated Glomerular Filt Rate 51 ml/min
== END 2024-07-23 13:34 | disposition home or self-care (01) ==
LOC: CT 13:34
PROVIDERS: PCP Family Medicine; Visit Provider Student in an Organized Health Care Education/Training Program
DX: N13.30 Unspecified hydronephrosis (principal)
CPT/HCPCS: 36415; 74178; 82565; Q9967

== ENCOUNTER 2024-09-10 09:06 | Outpatient (CLI) | payer BC, SELFPAY ==
[2024-09-10 22:04] LABS: Appearance Urine Clear (Clear); Bilirubin Urine Negative (Negative); Blood Urine Negative (Negative); Color Urine Yellow (Yellow); Glucose Urine Negative (Negative); Ketones Urine Negative (Negative); Leukocyte Esterase Urine Negative (Negative); Nitrite Urine Negative (Negative); Protein Urine Negative (Negative); Specific Gravity Urine 1.025 (1.000-1.030); Urobilinogen Urine 0.2 (0.2-1.0)
== END 2024-09-10 09:07 | disposition home or self-care (01) ==
LOC: NPINS 09:06
PROVIDERS: PCP Family Medicine; Visit Provider Urology
DX: N20.0 Calculus of kidney (principal)
CPT/HCPCS: 81003; 87086

== ENCOUNTER 2024-09-10 09:08 | Outpatient (CLI) | payer BC, SELFPAY | END 2024-09-10 09:09 | disposition home or self-care (01) | LOC: NFLDREF 09-13 19:52 | PROVIDERS: PCP Family Medicine; Referring Provider Family Medicine; Visit Provider Family Medicine | DX: E78.00 Pure hypercholesterolemia, unspecified (principal); I10 Essential (primary) hypertension; E11.9 Type 2 diabetes mellitus without complications | CPT/HCPCS: 80053; 80061 ==

== ENCOUNTER 2024-11-10 08:00 | Outpatient (CLI) | payer BC, SELFPAY | END 2024-11-10 08:01 | disposition home or self-care (01) | LOC: NFLDREF 11-12 17:32 | PROVIDERS: PCP Family Medicine; Referring Provider Family Medicine; Visit Provider Family Medicine | DX: E78.00 Pure hypercholesterolemia, unspecified (principal); N13.5 Crossing vessel and stricture of ureter without hydronephrosis | CPT/HCPCS: 80061; 80076 ==

== ENCOUNTER 2025-01-27 11:40 | Outpatient (CLI) | payer BC, SELFPAY ==
[2025-01-27 14:30] LABS: Appearance Urine Clear (Clear)
== END 2025-01-27 11:41 | disposition home or self-care (01) ==
LOC: NPINS 11:41
PROVIDERS: PCP Family Medicine; Visit Provider Urology
DX: R39.89 Other symptoms and signs involving the genitourinary system (principal)
CPT/HCPCS: 81001; 87086

== ENCOUNTER 2025-03-04 09:00 | Outpatient (CLI) | payer BC, SELFPAY | END 2025-03-04 09:01 | disposition home or self-care (01) | PROVIDERS: PCP Family Medicine; Visit Provider Family Medicine | DX: E11.9 Type 2 diabetes mellitus without complications (principal); N28.9 Disorder of kidney and ureter, unspecified; Z00.00 Encounter for general adult medical examination without abnormal findings; Z90.5 Acquired absence of kidney; E78.00 Pure hypercholesterolemia, unspecified | CPT/HCPCS: 80061; 80069; 82043; 82570; G0103 ==